=== PATIENT | male | born 1960 | race Native Hawaiian/Other Pacific Islander ===

== ENCOUNTER → 2016-10-02 | Outpatient (CLI) | payer OTHER ==
[~2016-10-02] MED LIST: DIGO250T PO; FURO20TA4 PO; PRAV40TA2 PO; WARF6TAB PO
== END ==
LOC: RAD 12:48
PROVIDERS: ATTEND Internal Medicine Cardiovascular Disease
DX: I73.9 Peripheral vascular disease, unspecified (principal); I48.2 Chronic atrial fibrillation; I50.33 Acute on chronic diastolic (congestive) heart failure; R06.09 Other forms of dyspnea; Z95.4 Presence of other heart-valve replacement
CPT/HCPCS: 93923

== ENCOUNTER → 2018-01-30 | Outpatient (CLI) | payer OTHER ==
[2018-01-30 16:46] LABS: BASOPHILS % (AUTO) 0 % (0-10); EOSINOPHILS # (AUTO) 0.1 10^3/uL (0.0-0.3); EOSINOPHILS % (AUTO) 1 % (0-10); HEMATOCRIT 41 % (40-54); HEMOGLOBIN 13.8 G/DL (13.3-17.7); LYMPHOCYTES # (AUTO) 0.8 X 10^3 (1.0-4.0); LYMPHOCYTES % (AUTO) 12 % (12-44); MEAN CORPUSCULAR HEMOGLOBIN 30 PG (25-34); MEAN CORPUSCULAR HGB CONC 33 G/DL (32-36); MEAN CORPUSCULAR VOLUME 88 FL (80-99); MEAN PLATELET VOLUME 9.8 FL (7.4-10.4); MONOCYTES # (AUTO) 0.7 X 10^3 (0.0-1.0); MONOCYTES % (AUTO) 10 % (0-12); NEUTROPHILS # (AUTO) 5.1 X 10^3 (1.8-7.8); NEUTROPHILS % (AUTO) 77 % (42-75); PLATELET COUNT 235 10^3/uL (130-400); RED BLOOD COUNT 4.68 10^6/uL (4.35-5.85); RED CELL DISTRIBUTION WIDTH 15.6 % (10.0-14.5); WHITE BLOOD COUNT 6.6 10^3/uL (4.3-11.0)
[2018-01-30 17:06] LABS: ALANINE AMINOTRANSFERASE 28 U/L (0-55); ALBUMIN 3.2 GM/DL (3.2-4.5); ALKALINE PHOSPHATASE 110 U/L (40-136); BUN/CREATININE RATIO 14; CALCIUM 8.5 MG/DL (8.5-10.1); CARBON DIOXIDE 33 MMOL/L (21-32); CHLORIDE 101 MMOL/L (98-107); CREATININE SERUM 0.94 MG/DL (0.60-1.30); GFR ESTIMATED > 60; GLUCOSE 92 MG/DL (70-105); MAGNESIUM 1.8 MG/DL (1.8-2.4); POTASSIUM 3.2 MMOL/L (3.6-5.0); SODIUM 140 MMOL/L (135-145); TOTAL PROTEIN 6.4 GM/DL (6.4-8.2)
[2018-01-30 17:33] LABS: DIGOXIN < 0.30 NG/ML (0.80-2.00)
== END ==
LOC: LAB 16:19
PROVIDERS: ATTEND Nurse Practitioner Family
DX: R06.09 Other forms of dyspnea (principal); I50.32 Chronic diastolic (congestive) heart failure; I48.2 Chronic atrial fibrillation; R60.9 Edema, unspecified
CPT/HCPCS: 36415; 80053; 80162; 83735; 83880; 84443; 85025

== ENCOUNTER → 2018-01-31 | Outpatient (CLI) | payer OTHER | LOC: CARD 09:41 | PROVIDERS: ATTEND Nurse Practitioner Family | DX: I50.32 Chronic diastolic (congestive) heart failure (principal); R06.09 Other forms of dyspnea; I48.2 Chronic atrial fibrillation; R60.9 Edema, unspecified; I08.1 Rheumatic disorders of both mitral and tricuspid valves | CPT/HCPCS: 93306 ==

== ENCOUNTER → 2018-02-03 | Outpatient (CLI) | payer OTHER ==
[2018-02-03 11:14] LABS: BUN/CREATININE RATIO 20; CALCIUM 9.8 MG/DL (8.5-10.1); CARBON DIOXIDE 27 MMOL/L (21-32); CHLORIDE 98 MMOL/L (98-107); CREATININE SERUM 0.87 MG/DL (0.60-1.30); GFR ESTIMATED > 60; GLUCOSE 97 MG/DL (70-105); MAGNESIUM 1.8 MG/DL (1.8-2.4); POTASSIUM 2.9 MMOL/L (3.6-5.0); SODIUM 139 MMOL/L (135-145)
== END ==
LOC: LAB 10:24
PROVIDERS: ATTEND Nurse Practitioner Family
DX: I50.43 Acute on chronic combined systolic (congestive) and diastolic (congestive) heart failure (principal)
CPT/HCPCS: 36415; 80048; 83735

== ENCOUNTER → 2018-02-05 | Outpatient (CLI) | payer OTHER ==
[2018-02-05 11:30] LABS: BUN/CREATININE RATIO 18; CALCIUM 9.3 MG/DL (8.5-10.1); CARBON DIOXIDE 34 MMOL/L (21-32); CHLORIDE 94 MMOL/L (98-107); CREATININE SERUM 0.94 MG/DL (0.60-1.30); GFR ESTIMATED > 60; GLUCOSE 111 MG/DL (70-105); MAGNESIUM 1.8 MG/DL (1.8-2.4); POTASSIUM 2.8 MMOL/L (3.6-5.0); SODIUM 138 MMOL/L (135-145)
[2018-02-05 11:38] LABS: DIGOXIN < 0.30 NG/ML (0.80-2.00)
== END ==
LOC: LAB 10:30
PROVIDERS: ATTEND Nurse Practitioner Family
DX: I50.43 Acute on chronic combined systolic (congestive) and diastolic (congestive) heart failure (principal); E87.6 Hypokalemia
CPT/HCPCS: 36415; 80048; 80162; 83735

== ENCOUNTER → 2020-04-04 | Outpatient (CLI) | payer OTHER ==
[~2020-04-04] MED LIST changes: -DIGO250T PO; +DIGO250T3 PO
== END ==
LOC: CARD 10:50
PROVIDERS: ATTEND Internal Medicine Cardiovascular Disease
DX: I08.1 Rheumatic disorders of both mitral and tricuspid valves (principal); I50.33 Acute on chronic diastolic (congestive) heart failure; I48.91 Unspecified atrial fibrillation; Z95.4 Presence of other heart-valve replacement
CPT/HCPCS: 93306

== ENCOUNTER 2020-05-22 14:59 | Emergency (ER) | payer OTHER ==
[~2020-05-22] VITALS: Ht 180.3 cm; Wt 72.4 kg
--- NOTE | 2020-05-22 15:20 | NUR ---
Right dorsalis pedis pulse obtained by doppler.
--- NOTE | 2020-05-22 15:22 | ED Lower Extremity ---
General Chief Complaint: Lower Extremity Stated Complaint: RT LEG PAIN Nursing Triage Note: Patient reports his right lower leg became painful and numb approximately one hour ago. States he has had a previous DVT and is taking coumadin. He states he had his INR tested on Saturday and it was low. Nursing Sepsis Screen: No Definite Risk Source: patient Exam Limitations: no limitations History of Present Illness Date Seen by Provider: May 22, 2020 Time Seen by Provider: 15:15 Initial Comments Patient is a 59-year-old male who presents to the emergency department today with a chief complaint of right lower extremity pain, numbness and "[id number]" that he believes is consistent with a blood clot. Patient has a long history of having blood clots in his legs. He is anticoagulated on Coumadin. He states that the pain was in his foot like a "cramp" and also in his upper thigh. Patient states that he was subtherapeutic on his Coumadin last week and therefore his dosing was increased from 5 mg to 6 mg daily. Patient tells me that in actuality his pain is improved at the time of my evaluation. He has not having any discomfort. 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 Ferrara. He denies any chest pain, shortness of breath, palpitations. No recent illnesses. All other review of systems reviewed and negative except as stated Onset: this afternoon Pain/Injury Location: right leg Allergies and Home Medications Allergies Coded Allergies: No Known Drug Allergies (Unverified , 01/13/15) Home Medications Digoxin 250 Mcg Tablet, 250 MCG PO HS, (Reported) Furosemide 20 Mg Tablet, 20 MG PO every other day Prescribed by: GRISELDA FERRARA on 03/22/15 1125 Pravastatin Sodium 40 Mg Tablet, 40 MG PO HS, (Reported) Warfarin Sodium 6 Mg Tablet, 9 MG PO ANGULO,SAT,SAT,SAT,SAT, (Reported) TAKES 1 AND 1/2 OF 6 MG TABS Warfarin Sodium 6 Mg Tablet, 6 MG PO SAT,, (Reported) Patient Home Medication List Home Medication List Reviewed: Yes Review of Systems Constitutional: no symptoms reported EENTM: no symptoms reported Respiratory: no symptoms reported Cardiovascular: No chest pain; edema Gastrointestinal: no symptoms reported Genitourinary: no symptoms reported Musculoskeletal: other (leg pain from the thigh to the foot) Skin: no symptoms reported All Other Systems Reviewed Negative Unless Noted: Yes Past Hqgwtxx-Uavlfw-Mwbbzm Hx Patient Social History Alcohol Use: Denies Use Recreational Drug Use: No Smoking Status: Never a Smoker 2nd Hand Smoke Exposure: No Recent Foreign Travel: No Contact w/Someone Who Travel: No Recent Infectious Disease Expo: No Recent Hopitalizations: No Physical Abuse: No Sexual Abuse: No Mistreated: No Fear: No Seasonal Allergies Seasonal Allergies: No Past Medical History Surgeries: Yes Valve Replacement Respiratory: No Cardiac: Yes Atrial Fibrillation, Chronic Edema/Swelling, Deep Vein Thrombosis, High Cholesterol Neurological: No Genitourinary: No Gastrointestinal: No Musculoskeletal: No Endocrine: No HEENT: No Cancer: No Psychosocial: No Integumentary: No Blood Disorders: No Physical Exam Vital Signs Vital Signs - First Documented 05/22/20 15:09 Temp 36.3 Pulse 76 Resp 18 B/P (MAP) 118/81 (93) Pulse Ox 99 O2 Delivery Room Air Capillary Refill : Less Than 3 Seconds Height, Weight, BMI Height: 5'10.00" Weight: 180lbs. oz. 81.251051uh; 22.00 BMI Method: General Appearance: WD/WN, no apparent distress Neck: full range of motion Cardiovascular: regular rate, rhythm, other (1+ pitting edema LLE; dopplerable dorsalis pedis pulse in the right foot) Respiratory: no respiratory distress, no accessory muscle use Hips: bilateral hip normal inspection, bilateral hip normal range of motion, bilateral hip no evidence of injury Legs: bilateral leg non-tender, bilateral leg normal inspection, bilateral leg normal range of motion, bilateral leg no evidence of injury Knees: bilateral knee normal range of motion, bilateral knee no evidence of injury Ankles: bilateral ankle non-tender, bilateral ankle normal inspection, bilateral ankle normal range of motion, bilateral ankle no evidence of injury Feet: bilateral foot non-tender, bilateral foot normal inspection, bilateral foot normal range of motion, bilateral foot no evidence of injury Neurologic/Tendon: normal motor functions, normal tendon functions Neurologic/Psychiatric: alert, normal mood/affect, oriented x 3 Skin: normal color, warm/dry Progress/Results/Core Measures Results/Orders Lab Results Laboratory Tests Test 05/22/20 15:30 Range/Units Prothrombin Time 15.9 H 12.2-14.7 SEC INR Comment 1.2 0.8-1.4 My Orders Orders - TAMERA,ROSALIE M MD Protime With Inr (05/22/20 15:16) Vital Signs/I&O 05/22/20 15:09 Temp 36.3 Pulse 76 Resp 18 B/P (MAP) 118/81 (93) Pulse Ox 99 O2 Delivery Room Air Blood Pressure Mean: 93 Progress Progress Note : Time: 15:25 Progress Note 59yo male with a history of DVT presents with complaints of RLE pain that he believes is consistent with a blood clot. Patient has no physical exam findings of a clot in the RLE, it is not swollen, it is non tender with no plapable cords, negative homans sign. However, he also said that he was sub therapeutic on his coumadin earlier in the week and we will check that to see if he is more therapeutic at this time. Ultrasound is not available at this facility and he has an appointment with his physician tomorrow. If necessary he can get the ultrasound through Dr Ferrara. He is already on treatment for DVT, it would just be a matter of increasing his dose of coumadin. Other DDx to consider is arterial occlusion in the leg - the lower leg is not cold, I can feel pulses in the foot and he has movement. If his pain is more consistent with movement he may have caludication and therefore need arterial duplex tomorrow. But he states the pain is inconsistent with activity. 1559 INR subtherapeutic, will have patient follow up with Dr Ferrara tomorrow, watch his diet; discuss possibility of changing anticoagulants Departure Impression Primary Impression: Right leg pain Additional Impression: Subtherapeutic anticoagulation Disposition: 01 HOME, SELF-CARE Condition: Stable Departure-Patient Inst. Decision time for Depature: 16:00 Referrals: SANJU CHANG DO (PCP) Primary Care Physician CARY BROWNING (Family) Primary Care Physician Patient Instructions: Deep Vein Thrombosis (Blood Clots in the Legs) (DC) Add. Discharge Instructions: I have written you an order for an ultrasound of your leg hopefully they can do this tomorrow. Please keep your appointment with Dr Ferrara tomorrow. Your INR today was 1.2. Watch your diet. Possibly discuss with Dr Ferrara switching blood thinning medications. ROSALIE PHILIP MD May 22, 2020 15:22
[2020-05-22 15:47] LABS: INR 1.2 (0.8-1.4); PROTHROMBIN TIME PATIENT 15.9 SEC (12.2-14.7)
[2020-05-22 16:12] VITALS: BP 115/64
== END 2020-05-22 16:09 | disposition home or self-care (01) ==
LOC: EDUNIT# 14:59 → ER FS 15:01
DX: M79.604 Pain in right leg (principal); E78.00 Pure hypercholesterolemia, unspecified; Z86.718 Personal history of other venous thrombosis and embolism; Z79.01 Long term (current) use of anticoagulants
CPT/HCPCS: 36415; 85610; 99283

== ENCOUNTER → 2020-05-23 | Outpatient (CLI) | payer OTHER ==
--- NOTE | 2020-05-23 11:24 | Diagnostic Imaging Report ---
PROCEDURE: US right lower extremity venous. TECHNIQUE: Multiple Real-time grayscale images were obtained over the right lower extremity in various projections. Additional spectral analysis and color Doppler duplex images were also obtained. INDICATION: Right leg pain. FINDINGS: There is no evidence of right lower extremity DVT. The right lower extremity deep venous system shows normal compressibility with normal response to augmentation and Valsalva. No fluid collection or mass is detected. IMPRESSION: No evidence of right lower extremity DVT. Dictated by: Dictated on workstation # [id number]
== END ==
LOC: RAD 11:00
PROVIDERS: ATTEND Emergency Medicine
DX: M79.661 Pain in right lower leg (principal); Z86.718 Personal history of other venous thrombosis and embolism; Z79.01 Long term (current) use of anticoagulants

== ENCOUNTER 2020-06-08 13:16 | Outpatient (RCR) | payer OTHER ==
[~2020-06-08] VITALS: Ht 177 cm; Wt 82.2 kg
[~2020-06-08 13:16] MED LIST changes: +ASPI-999 PO; +CHOL500044 PO; +DOCU100T7 PO; +FERR-84 PO; +METO5TAB6 PO; +SPIR25TA5 PO; +WARF6TAB49 PO
== END 2020-06-08 13:18 | disposition home or self-care (01) ==
LOC: PREOP 13:16
PROVIDERS: ATTEND Surgery
DX: Z01.812 Encounter for preprocedural laboratory examination (principal); K62.5 Hemorrhage of anus and rectum

== ENCOUNTER → 2020-06-10 | Outpatient (CLI) | payer OTHER | LOC: LAB FS 10:30 | PROVIDERS: ATTEND Surgery | DX: Z01.812 Encounter for preprocedural laboratory examination (principal); Z12.11 Encounter for screening for malignant neoplasm of colon; K62.5 Hemorrhage of anus and rectum; Z20.828 Contact with and (suspected) exposure to other viral communicable diseases | CPT/HCPCS: 87635 ==

== ENCOUNTER → 2020-06-14 | Day surgery (SDC) | payer OTHER ==
[~2020-06-14] VITALS: Ht 177.8 cm; Wt 85.0 kg
[2020-06-14] VITALS (8 sets, daily range): BP systolic 100–129; BP diastolic 57–74
[~2020-06-14] MED LIST changes: +LACTATED RINGERS 1,000 ML IV ONE; +LACTATED RINGERS 1,000 ML IV STA; +MIDAZOLAM 2 MG/2 ML (VERSED) VIAL ONE; +PROPOFOL INJECTION 50 ML IV ONE
[2020-06-14 10:15] LABS: INR 1.1 (0.8-1.4); PROTHROMBIN TIME PATIENT 14.8 SEC (12.2-14.7)
--- NOTE | 2020-06-14 12:15 | Progress Note-Post Operative ---
Post-Operative Progess Note Surgeon (s)/Cement Or Concrete Finishing Supervisor (s) Surgeon ROBI OLEARY DO Cement Or Concrete Finishing Supervisor: na Pre-Operative Diagnosis blood in stool Post-Operative Diagnosis hemorrhoids Procedure & Operative Findings Date of Procedure 06/14/20 Procedure Performed/Findings colonoscopy Anesthesia Type per bookmobile clerk Estimated Blood Loss Estimated blood loss (mL): none Specimens/Packing Specimens Removed na ROBI OLEARY DO Jun 14, 2020 12:15
--- NOTE | 2020-06-14 12:16 | Discharge Inst-Simple/Standard ---
Discharge Inst-Standard Patient Instructions/Follow Up Plan of Care/Instructions/FU: 2 weeks Yojana Activity as Tolerated: Yes Discharge Diet: Regular Diet ROBI OLEARY DO Jun 14, 2020 12:16
--- NOTE | 2020-06-14 19:00 | OPERATIVE REPORT ---
DATE OF SERVICE: 06/14/2020 PREOPERATIVE DIAGNOSIS: Blood in stool. POSTOPERATIVE DIAGNOSIS: Hemorrhoids. PROCEDURE: Colonoscopy. SURGEON: Robi Dial DO ANESTHESIA: Per SUPERVISOR ELEMENTARY EDUCATION. ESTIMATED BLOOD LOSS: None. COMPLICATIONS: None. INDICATIONS: The patient is a 59-year-old male with blood in stools. He understands risks and benefits of procedure and wished to proceed with procedure. Consent was signed in the chart. DESCRIPTION OF PROCEDURE: The patient was taken to the endoscopy suite, placed in left lateral recumbent position. Timeout was performed. Digital rectal exam was performed noting hemorrhoids. No palpable polyps, masses or ulcerations. Scope was inserted in the rectum and advanced all the way to cecum with minimal difficulty. Prep was adequate. No polyps, masses or ulcerations in the cecum. The ileocecal valve was intubated and normal appearance. Scope was then retracted back into the colon and continued to be retracted. No polyps, masses or ulcerations within the ascending, transverse, descending and sigmoid colon. Once in the rectum, scope was retroflexed just noting some hemorrhoidal disease. Scope was returned to its normal position, slowly withdrawn until completely removed. The patient tolerated procedure well without any complications and taken to recovery room in stable condition. RECOMMENDATIONS: The patient will continue to monitor. If continues to have bleeding, would consider repeat endoscopy. No source of bleeding. Suspect hemorrhoidal bleeding. The patient will follow up to discuss in office. Job ID: [id number] DocumentID: [id number] Dictated Date: 06/14/2020 12:18:21 Business Banker Date: 06/14/2020 18:59:31 Dictated By: ROBI DIAL DO
== END ==
LOC: ENDO 08:50
PROVIDERS: ATTEND Surgery
DX: K92.1 Melena (principal); K64.9 Unspecified hemorrhoids; I48.91 Unspecified atrial fibrillation; D64.9 Anemia, unspecified; I50.33 Acute on chronic diastolic (congestive) heart failure; E66.9 Obesity, unspecified; Z68.26 Body mass index [BMI] 26.0-26.9, adult; Z79.899 Other long term (current) drug therapy; Z79.01 Long term (current) use of anticoagulants; Z79.82 Long term (current) use of aspirin
CPT/HCPCS: 36415; 85610

== ENCOUNTER → 2020-10-10 | Outpatient (CLI) | payer OTHER ==
[~2020-10-10] MED LIST changes: -LACTATED RINGERS 1,000 ML IV ONE; -LACTATED RINGERS 1,000 ML IV STA; -MIDAZOLAM 2 MG/2 ML (VERSED) VIAL ONE; -PROPOFOL INJECTION 50 ML IV ONE
== END ==
LOC: CARD 09:46
PROVIDERS: ATTEND Internal Medicine Cardiovascular Disease
DX: I08.0 Rheumatic disorders of both mitral and aortic valves (principal); Z95.2 Presence of prosthetic heart valve
CPT/HCPCS: 93306

== ENCOUNTER → 2022-02-15 | Outpatient (CLI) | payer SELFPAY | END | disposition home or self-care (01) | LOC: PREOP 05:32 | PROVIDERS: ATTEND Surgery | DX: Z01.818 Encounter for other preprocedural examination (principal) ==

== ENCOUNTER 2022-03-22 05:30 | Outpatient (CLI) | payer SELFPAY ==
[~2022-03-22] VITALS: Ht 177.8 cm; Wt 78.5 kg
== END 2022-03-22 13:24 | disposition home or self-care (01) ==
LOC: PREOP 05:30
PROVIDERS: ATTEND Surgery
DX: Z01.818 Encounter for other preprocedural examination (principal)

== ENCOUNTER 2022-03-29 10:14 | Day surgery (SDC) | payer OTHER ==
[2022-03-29] VITALS (12 sets, daily range): BP systolic 93–125; BP diastolic 54–83
[~2022-03-29] VITALS: Ht 177 cm; Wt 78.5 kg
[2022-03-29] MEDS ORDERED: LACTATED RINGERS 1,000 ML IV PRN (10:30)
[2022-03-29] MEDS ORDERED: proPOfol 200 MG/20 ML (DIPRIVAN) VIAL IV ONE (11:37)
[2022-03-29] MEDS ORDERED: ONDANSETRON 4 MG/2 ML (SDV) Z0FRAN ONE (11:37)
[2022-03-29] MEDS ORDERED: fentaNYL INJ 100 MCG/2 ML AMP ONE (11:37)
[2022-03-29] MEDS ORDERED: MIDAZOLAM 2 MG/2 ML (VERSED) VIAL ONE (11:37)
[2022-03-29] MEDS ORDERED: LIDOCAINE PF 2% 5 ML (XYLOCAINE) VIAL ONE (11:37)
[2022-03-29] MEDS ORDERED: MTP25TSR PO (11:42)
[2022-03-29] MEDS ORDERED: ceFAZolin INJECTION 2,000 MG ONE (11:50)
[2022-03-29] MEDS ORDERED: LIDOCAINE/EPI 2% 1:200,00 (XYLOCAINE) 20 ML VIAL ONE (12:15)
[2022-03-29] MEDS ORDERED: SEVOFLURANE (ULTANE) 15 ML INHAL SOLN ONE (12:55)
--- NOTE | 2022-03-29 13:03 | Discharge Inst-Simple/Standard ---
Discharge Inst-Standard Discharge Medications New, Converted or Re-Newed RX: Transmitted to Pharmacy Patient Instructions/Follow Up Plan of Care/Instructions/FU: 2 weeks Yojana Activity as Tolerated: No Discharge Diet: Regular Diet Other Inst to Patient Follow up Appt: Make appointment for 2 week. Instructions: No lifting greater than 10 pounds. No strenuous activity. Sitz baths twice a day and after bowel movements. Use incentive spirometer at home as directed. No Smoking Skin/Wound Care: You have a plug in the anus/rectum. If it doesn't come out in 24 hours gently remove it. Do not pull on the strings, they are stitches and stay there. Symptoms to Report: Appetite Changes, Extremity Discoloration, Numbness/Tingling, Swelling Increased, Bleeding Excessive, Eyesight Changes, Pain Increased, Urine Color Change, Constipation(Persistent), Fever over 101 degree F, Pain/Pressure in chest, Urinating Difficulty, Cough Up/Vomit Blood, Heart Beat Irreg/Pounding, Pain/Pressure in jaw, Vaginal Bleeding Increase, Cramps in feet or legs, Lightheadedness, Pain/Pressure in shoulder, Diarrhea(Persistent), Memory Changes Suddenly, Questions/Concerns, Weight gain consecutive days, Dizziness/Fainting, Nausea/Vomiting, Shortness of Breath, Weight gain over 2 pounds If questions or concerns contact your physician Or seek help at emergency department. ROBI OLEARY DO Mar 29, 2022 13:03
[2022-03-29] MEDS ORDERED: ACHD5005 PO (13:04)
[2022-03-29] MEDS ORDERED: ONDANSETRON 4 MG/2 ML (SDV) Z0FRAN IVP PRN (13:15)
[2022-03-29] MEDS ORDERED: morphine INJ 10 MG/ML 1ML (SYR OR VIAL) IVP ONE (13:15)
[2022-03-29] MEDS ORDERED: HYDROmorphone 2 MG/ML VIAL (DILAUDID) IV ONE (13:15)
--- NOTE | 2022-03-29 14:14 | Anesthesia-General Post-Op ---
General Patient Condition Mental Status/LOC: Same as Preop Cardiovascular: Satisfactory Nausea/Vomiting: Absent Respiratory: Satisfactory Pain: Controlled Complications: Absent Post Op Complications Complications None Follow Up Care/Instructions Patient Instructions None needed. Anesthesia/Patient Condition Patient Condition Patient was doing well in PACU with no complaints, stable vital signs, no apparent adverse anesthesia problems. No complications reported per nursing. ELEAZAR PELLETIER DO Mar 29, 2022 14:14
--- NOTE | 2022-03-29 20:02 | OPERATIVE REPORT ---
DATE OF SERVICE: 03/29/2022 PREOPERATIVE DIAGNOSES: Blood in stool. Hemorrhoids. POSTOPERATIVE DIAGNOSIS: Internal and external hemorrhoids. PROCEDURE: Colonoscopy with exam under anesthesia, left lateral internal hemorrhoidectomy. SURGEON: Robi Dial DO ANESTHESIA: General. ESTIMATED BLOOD LOSS: Minimal. COMPLICATIONS: None. INDICATIONS: The patient is a 61-year-old male with blood in the stools. He also has hemorrhoids. He understands risks and benefits of procedure and wishes to proceed. Consent was signed in the chart. DESCRIPTION OF PROCEDURE: The patient was taken to the operating suite, placed in frogleg position. Timeout was performed. Digital rectal exam was performed noting external and internal hemorrhoids. Scope was inserted in the rectum and advanced all the way to the cecum with minimal difficulty. Prep was adequate. Scope was slowly retracted back. No polyps, masses or ulcerations in the cecum, ascending, transverse, descending, sigmoid colon. Once in the rectum, scope was retroflexed noting hemorrhoids. Scope was slowly retracted back until completely removed. The patient tolerated the procedure well. The patient was then placed in lithotomy position. Exam under anesthesia performed again noting external and internal hemorrhoids, left lateral hemorrhoid complex significantly large, also large external components as well. Dittmar retractor was inserted, visualizing the left one to be significantly larger and inflamed. This was able to be grasped and gently retracted. A Harmonic Focus then was used to excise the area of the left lateral hemorrhoid. Some slight oozing present due to the patient's anticoagulation. This was controlled and 2-0 Vicryl suture was then used to close the mucosal defect little bit of oozing present, so a second 2-0 Vicryl was ran closing the defect. Prior to hemorrhoidectomy, a bilateral pudendal block was performed. Hemostasis was achieved. A Gelfoam and Vaseline gauze was inserted into the anorectal area to continue with hemostasis. The patient tolerated the procedure well without any complications, taken to recovery room in stable condition. RECOMMENDATIONS: We will see how he is doing at this time and followup. If continues to have bleeding, we would consider excising the right anterior or posterior hemorrhoid complex. This was not done today due to concern for multiple areas of hematomas causing further difficulties, therefore, we only did the one area, which was the worst. Job ID: [id number] DocumentID: [id number] Dictated Date: 03/29/2022 13:09:06 Manager Loan Date: 03/29/2022 20:02:13 Dictated By: ROBI DIAL DO
== END 2022-03-29 15:02 | disposition home or self-care (01) ==
LOC: SDC 10:14
PROVIDERS: ATTEND Surgery
DX: K64.8 Other hemorrhoids (principal); K64.4 Residual hemorrhoidal skin tags; K92.1 Melena; E66.9 Obesity, unspecified; Z68.25 Body mass index [BMI] 25.0-25.9, adult
CPT/HCPCS: 87081

== ENCOUNTER → 2022-04-20 | Outpatient (CLI) | payer MEDICAID ==
[~2022-04-20] MED LIST changes: +ACHD5005 PO; +MTP25TSR PO
== END ==
LOC: CARD 10:20
PROVIDERS: ATTEND Internal Medicine Cardiovascular Disease
DX: I36.1 Nonrheumatic tricuspid (valve) insufficiency (principal); I50.33 Acute on chronic diastolic (congestive) heart failure; I51.7 Cardiomegaly; Z95.2 Presence of prosthetic heart valve
CPT/HCPCS: 93306

== ENCOUNTER 2022-12-04 16:57 | Emergency (ER) | payer MEDICAID, OTHER ==
--- NOTE | 2022-12-04 17:13 | ED General ---
General Chief Complaint: Head/Cervical Problems Stated Complaint: HEADACHES Source of Information: Patient, Caregiver History of Present Illness Date Seen by Provider: December 04, 2022 Time Seen by Provider: 16:59 Initial Comments 62-year-old male presenting with caregivers. He has reportedly been having a left-sided headache above his eye for the last week. He has had decreased concentration and is more forgetful. He has had increased swelling to his legs especially the left side which had been swollen after his stroke 2 years ago. He takes Lasix to try and help with the edema. He follows with Dr. Ferrara for cardiology and was seen Dr. Jesus before he retired. Now he is seeing a nurse practitioner at [facility]. They went to the clinic today after he has had all of this going on for a week. Today he felt he might have a fever and took some tylenol. He had some nausea today as well. He denies having abdominal pain, chest pain, pain with urination, diarrhea. Timing/Duration: 1 Week Severity: Severe Associated Systoms: No Chest Pain, No Cough, No Diaphoresis; Fever/Chills (subjective this am), Headaches (left sided above eye), Loss of Appetite, Malaise, Nausea/Vomiting (nausea today but no emesis); No Seizure, No Shortness of Air, No Syncope; Weakness Allergies and Home Medications Allergies Coded Allergies: No Known Drug Allergies (Unverified , 06/08/20) Patient Home Medication List Home Medication List Reviewed: Yes Aspirin (Aspirin) 81 Mg Tab.chew, 81 MG PO DAILY, (Reported) Entered as Reported by: YARA PABLO on 06/08/20 1305 Cholecalciferol (Vitamin D3) (Vitamin D3) 125 Mcg Tablet, 125 MCG PO DAILY, (Reported) Entered as Reported by: YARA PABLO on 06/08/20 1305 Digoxin (Digoxin) 250 Mcg Tablet, 250 MCG PO HS, (Reported) Entered as Reported by: ELAINE DUNCAN on 03/22/15 0848 Docusate Sodium (Stool Softener) 100 Mg Tablet, 100 MG PO DAILY, (Reported) Entered as Reported by: YARA PABLO on 06/08/20 1306 Ferrous Sulfate (Iron) 325 Mg Tablet, 325 MG PO DAILY, (Reported) Entered as Reported by: YARA PABLO on 06/08/20 1305 Furosemide (Furosemide) 20 Mg Tablet, 20 MG PO DAILY, (Reported) Entered as Reported by: YARA PABLO on 06/08/20 1305 Hydrocodone/Acetaminophen (Hydrocodone-Acetamin 5-325 mg) 5 Mg-325 Mg Tablet, 1 EACH PO Q4H PRN for PAIN-MODERATE (5-7) Prescribed by: ROBI OLEARY on 03/29/22 1304 Magnesium Glycinate, Mag Oxide (Magnesium Glycinate) 120 Mg Magnesium Capsule, 120 MG PO DAILY Prescribed by: KIESHA RICHARD on 12/04/222007 Metolazone (Metolazone) 5 Mg Tablet, 5 MG PO BID, (Reported) Entered as Reported by: YARA PABLO on 06/08/20 130 Metoprolol Succinate (Metoprolol Succinate) 25 Mg Tab.er.24h, 25 MG PO DAILY, (Reported) Entered as Reported by: JERI SOLER on 03/29/22 1142 Spironolactone (Spironolactone) 25 Mg Tablet, 25 MG PO BID, (Reported) Entered as Reported by: YARA PABLO on 06/08/20 1305 Warfarin Sodium (Warfarin Sodium) 6 Mg Tablet, 6 MG PO DAILY, (Reported) Entered as Reported by: YARA PABLO on 06/08/20 1305 Review of Systems Review of Systems Constitutional: see HPI EENTM: No ear discharge, No ear pain, No vision loss, No epistaxis, No nose congestion Respiratory: No cough, No short of breath Cardiovascular: No chest pain; edema Gastrointestinal: No abdominal pain; nausea; No vomiting Genitourinary: No dysuria Musculoskeletal: no symptoms reported Skin: no symptoms reported Psychiatric/Neurological: Headache (left sided above her eye); Denies Numbness, Denies Paresthesia; Weakness (general) Hematologic/Lymphatic: No Symptoms Reported Past Hlzdggf-Xugjst-Mwbocx Hx Patient Social History Tobacco Use?: No Immunizations Up To Date First/Initial COVID19 Vaccinat: 2020 Second COVID19 Vaccination [place]: 2020 Third COVID19 Vaccination Date: 2020 Seasonal Allergies Seasonal Allergies: No Past Medical History Surgery/Hospitalization HX: Stroke 2020, CHF, Atrial fibrillation, Hypertension Surgeries: Yes Valve Replacement Respiratory: No Currently Using CPAP: No Currently Using BIPAP: No Cardiac: Yes Atrial Fibrillation, Chronic Edema/Swelling, Deep Vein Thrombosis, Hypertension Neurological: Yes Stroke Sexually Transmitted Disease: No HIV/AIDS: No Genitourinary: No Gastrointestinal: Yes Chronic Constipation Musculoskeletal: No Endocrine: No HEENT: No Loss of Vision: Denies Hearing Impairment: Hard of Hearing Cancer: No Psychosocial: No Integumentary: No Blood Disorders: Yes (ANEMIA) Adverse Reaction/Blood Tranf: No (N/A) Physical Exam Vital Signs Vital Signs - First Documented 12/04/22 17:00 Temp 36.5 Pulse 57 Resp 16 B/P (MAP) 108/47 (67) Pulse Ox 97 O2 Delivery Room Air Capillary Refill : Height, Weight, BMI Height: 5'10.00" Weight: 180lbs. oz. 81.351559am; 25.05 BMI Method: General Appearance: No Apparent Distress, WD/WN HEENT: PERRL/EOMI, Pharynx Normal, Moist Mucous Membranes Neck: Full Range of Motion, Normal Inspection, Non Tender, Supple Respiratory: Chest Non Tender, Lungs Clear, Normal Breath Sounds Cardiovascular: Regular Rate, Rhythm, Normal Peripheral Pulses Gastrointestinal: Normal Bowel Sounds, No Pulsatile Mass, Non Tender, Soft Rectal: Deferred Extremity: Normal Capillary Refill, Normal Inspection, Pedal Edema (2 + pitting edema LLE and 1+ pitting edema RLE both extend up above his knee) Neurologic/Psychiatric: Alert, Oriented x3, parking enforcement specialist II-XII Norm as Tested Skin: Normal Color, Warm/Dry Progress/Results/Core Measures Suspected Sepsis SIRS Temperature: Pulse: Respiratory Rate: Laboratory Tests 12/04/22 17:25: White Blood Count 7.7 Blood Pressure / Mean: Laboratory Tests 12/04/22 17:25: Creatinine 1.16, Platelet Count 259, Total Bilirubin 0.5 Results/Orders Lab Results Laboratory Tests Test 12/04/22 17:25 12/04/22 18:17 Range/Units White Blood Count 7.7 4.3-11.0 10^3/uL Red Blood Count 4.62 4.30-5.52 10^6/uL Hemoglobin 13.3 13.3-17.7 g/dL Hematocrit 40 40-54 % Mean Corpuscular Volume 87 80-99 fL Mean Corpuscular Hemoglobin 29 25-34 pg Mean Corpuscular Hemoglobin Concent 33 32-36 g/dL Red Cell Distribution Width 14.7 H 10.0-14.5 % Platelet Count 259 130-400 10^3/uL Mean Platelet Volume 9.6 9.0-12.2 fL Immature Granulocyte % (Auto) 0 % Neutrophils (%) (Auto) 82 H 42-75 % Lymphocytes (%) (Auto) 8 L 12-44 % Monocytes (%) (Auto) 9 0-12 % Eosinophils (%) (Auto) 0 0-10 % Basophils (%) (Auto) 1 0-10 % Neutrophils # (Auto) 6.3 1.8-7.8 10^3/uL Lymphocytes # (Auto) 0.6 L 1.0-4.0 10^3/uL Monocytes # (Auto) 0.7 0.0-1.0 10^3/uL Eosinophils # (Auto) 0.0 0.0-0.3 10^3/uL Basophils # (Auto) 0.0 0.0-0.1 10^3/uL Immature Granulocyte # (Auto) 0.0 0.0-0.1 10^3/uL Neutrophils % (Manual) 81 % Lymphocytes % (Manual) 3 % Monocytes % (Manual) 8 % Eosinophils % (Manual) 1 % Atypical Lymphocytes % Reactive Lymphocytes 7 % Toxic Granulation 1+ Platelet Estimate NORMAL Poikilocytosis MARKED Crenated Cell MARKED Elliptocytes SLIGHT Schistocytes SLIGHT Blood Morphology Comment ABNORMAL Sodium Level 133 L 135-145 MMOL/L Potassium Level 3.0 L 3.6-5.0 MMOL/L Chloride Level 96 L 98-107 MMOL/L Carbon Dioxide Level 27 21-32 MMOL/L Anion Gap 10 5-14 MMOL/L Blood Urea Nitrogen 24 H 7-18 MG/DL Creatinine 1.16 0.60-1.30 MG/DL Estimat Glomerular Filtration Rate 72 BUN/Creatinine Ratio 21 Glucose Level 117 H 70-105 MG/DL Calcium Level 7.9 L 8.5-10.1 MG/DL Corrected Calcium 9.1 8.5-10.1 MG/DL Magnesium Level 1.4 L 1.6-2.4 MG/DL Total Bilirubin 0.5 0.1-1.0 MG/DL Aspartate Amino Transf (AST/SGOT) 38 H 5-34 U/L Alanine Aminotransferase (ALT/SGPT) 21 0-55 U/L Alkaline Phosphatase 61 40-136 U/L Troponin I < 0.30 <0.30 NG/ML Pro-B-Type Natriuretic Peptide 411.6 H <125.0 PG/ML Total Protein 4.9 L 6.4-8.2 GM/DL Albumin 2.5 L 3.2-4.5 GM/DL Lipase 75 8-78 U/L Serum Alcohol < 10 <10 MG/DL Urine Color YELLOW Urine Clarity CLEAR Urine pH 7.0 5-9 Urine Specific [place] 1.010 L 1.016-1.022 Urine Protein NEGATIVE NEGATIVE Urine Glucose (UA) NEGATIVE NEGATIVE Urine Ketones NEGATIVE NEGATIVE Urine Nitrite NEGATIVE NEGATIVE Urine Bilirubin NEGATIVE NEGATIVE Urine Urobilinogen 0.2 < = 1.0 MG/DL Urine Leukocyte Esterase NEGATIVE NEGATIVE Urine RBC (Auto) NEGATIVE NEGATIVE Urine RBC NONE /HPF Urine WBC RARE /HPF Urine Squamous Epithelial Cells RARE /HPF Urine Crystals NONE /LPF Urine Bacteria NEGATIVE /HPF Urine Casts PRESENT /LPF Urine Hyaline Casts 2-5 H /LPF Urine Mucus NEGATIVE /LPF Urine Culture Indicated NO Urine Opiates Screen NEGATIVE NEGATIVE Urine Oxycodone Screen NEGATIVE NEGATIVE Urine Methadone Screen NEGATIVE NEGATIVE Urine Propoxyphene Screen NEGATIVE NEGATIVE Urine Barbiturates Screen NEGATIVE NEGATIVE Ur Tricyclic Antidepressants Screen NEGATIVE NEGATIVE Urine Phencyclidine Screen NEGATIVE NEGATIVE Urine Amphetamines Screen NEGATIVE NEGATIVE Urine Methamphetamines Screen NEGATIVE NEGATIVE Urine Benzodiazepines Screen NEGATIVE NEGATIVE Urine Cocaine Screen NEGATIVE NEGATIVE Urine Cannabinoids Screen NEGATIVE NEGATIVE My Orders Orders - KIESHA RICHARD MD Cbc With Automated Diff (12/04/22 17:09) Magnesium (12/04/22 17:09) Chest 1 View Ap/Pa Only (12/04/22 17:09) Ekg Tracing (12/04/22 17:09) Comprehensive Metabolic Panel (12/04/22 17:09) Protime With Inr (12/04/22 17:09) Partial Thromboplastin Time (12/04/22 17:09) O2 (12/04/22 17:09) Monitor-Rhythm Ecg Trace Only (12/04/22 17:09) Ed Iv/Invasive Line Start (12/04/22 17:09) Lipase (12/04/22 17:09) Troponin I Fs (12/04/22 17:09) Probnp Fs (12/04/22 17:09) Ua Culture If Indicated (12/04/22 17:09) Drug Screen Stat (Urine) (12/04/22 17:09) Alcohol (12/04/22 17:09) Ct Head Wo (12/04/22 17:09) Manual Differential (12/04/22 17:25) Magnesium 1 Gm/100 Ml Ivpb (Magnesium Mast (12/04/22 19:30) Furosemide Injection (Lasix Injection) (12/04/22 19:30) Potassium Chloride (Tablet) (K Dur Table (12/04/22 19:31) Vital Signs/I&O 12/04/22 17:00 Temp 36.5 Pulse 57 Resp 16 B/P (MAP) 108/47 (67) Pulse Ox 97 O2 Delivery Room Air Capillary Refill : Progress Note #1: Progress Note Potential diagnosis of migraine headache, electrolyte imbalance, exacerbation of CHF, UTI, acute stroke, brain mass, hydrocephalus. Obtain peripheral IV access and send labs for complete blood count, comprehensive metabolic profile, coagulation factors, Progress Note #2: Progress Note Blood count shows WBC normal at 7.7 and Hemoglobin is at lower limit of normal at 13.3. He has low potassium to 3.0 and Magnesium of 1.4. This could be contributing to frequent PVCs. He had no elevation of his troponin as it was <0.3. His Creatinine was slightly elevated to 1.16. His proBNP was slightly elevated to 411.6. He had a normal lipase of 75. His alcohol level was less than 10. His urine drug screen was negative for all substances. His urinalysis had a normal specific gravity of 1.010. He had no nitrites, leukocyte esterase, white blood cells, bacteria and indicate an infection. On his 1 view chest x-ray he had prominent cardiomegaly and some pulmonary edema. I did not appreciate a large effusion or definite infiltrate. On his CT scan of the head without contrast I did not appreciate any acute mass, hydrocephalus, stroke, bleeding. Progress Note #3: Progress Note I reviewed the radiologist report on the 1 view chest x-ray and CT scan of the head without contrast. They also did not appreciate any acute process in the CT head. On his chest x-ray they read it as cardiomegaly with pulmonary edema and patchy infiltrates that could be related to edema or possibly atypical infection. I reviewed the findings with patient and family. He states that he is taking 3 different diuretics of Lasix, metolazone, spironolactone. He could not tell me the doses of those 3 diuretics. None of these medicines for diuretics were listed on his medication list that family had. It did look like there was may be an additional list of medicine on another page that they did not receive. Advised that I did not see anything specific to make him have to be admitted to the hospital currently. He could be experiencing some residual advancing effects from has prior stroke with decline in mentation as well as possible migraine or atypical migraine headaches related to prior brain injury with the stroke. We will give an IV dose of magnesium 1 g to help supplement his hypomagnesemia level of 1.4. Given an additional 40 mEq p.o. of potassium. Given an additional dose of Lasix 40 mg IV x1 here in the ED to try and help with diuresis. Prescribed magnesium to take at home. Encouraged to check back with the clinic tomorrow to find out about his diuretics and see how they might want to adjust to help with his increased fluid. He might also need to go see Dr. Ferrara from a cardiology standpoint advised if he had worsening symptoms to return or seek medical care for further evaluation. He might need admitted to [place] or [place] to give diuresis and monitoring. ECG Initial ECG Impression Date: December 04, 2022 Initial ECG Impression Time: 17:22 Initial ECG Rate: 62 Initial ECG Rhythm: Normal Sinus Initial ECG Impression: 1st Degree AV Block Initial ECG Comparisson: No Previous ECG Available Comment On my personal interpretation and review his electrocardiogram shows a sinus rhythm with first-degree AV block and frequent PVCs. His heart rate 62 bpm. NM interval [address] elevation. He has an incomplete right bundle branch block. QT interval 460 ms with a QTc interval 465 ms. He has some baseline wander on the tracing. There is no prior tracing available for comparison. Diagnostic Imaging Diagonstic Imaging: CT Plain Films/CT/US/NM/MRI: head Comments [facility], [place] NAME: ISIDRO GUTIÉRREZ [facility] REC#: [id number] PT STATUS: REG ER : 1960 PHYSICIAN: KIESHA RICHARD MD ADMIT DATE: 12/04/22/ER FS Signed Date of Exam:12/04/22 CT HEAD WO PROCEDURE: CT head without contrast. TECHNIQUE: Multiple contiguous axial images were obtained through the brain without the use of intravenous contrast. Auto Exposure Controls were utilized during the CT exam to meet ALARA standards for radiation dose reduction. INDICATION: Left-sided headache. No prior studies are available for comparison. FINDINGS: Ventricular sizes and sulcal pattern are within normal limits. There is no sulcal effacement or midline shift. There appears to be an old infarct in the right basal ganglia and right raymundo radiata. There is no midline shift. No acute intra-axial or extra-axial hemorrhage is detected. Cisterns are patent. The visualized paranasal sinuses are clear. IMPRESSION: Chronic changes. No acute intracranial process is detected. Dictated by: Dictated on workstation # [id number] Dict: 12/04/221832 Trans: 12/04/221843 [id number] Interpreted by: TOO KOWALSKI MD Electronically signed by: TOO KOWALSKI MD 12/04/221843 Reviewed: Reviewed by Nv Diagonstic Imaging: Xray Plain Films/CT/US/NM/MRI: chest Comments [facility], [place] NAME: ISIDRO GUTIÉRREZ [facility] REC#: [id number] PT STATUS: REG ER : 1960 PHYSICIAN: KIESHA RICHARD MD ADMIT DATE: 12/04/22/ER FS Signed Date of Exam:12/04/22 CHEST 1 VIEW AP/PA ONLY EXAMINATION: Chest 1 view HISTORY: short of breath COMPARISON: None available. FINDINGS: Heart size is enlarged. Surgical changes from median sternotomy and valve repair. There are mild interstitial opacities throughout the lungs. No pneumothorax. The osseous structures are intact. Prominent retrocardiac opacity which may be secondary to cardiomegaly but a hiatal hernia could have a similar appearance. IMPRESSION: 1. Cardiomegaly with interstitial opacities throughout both lungs. Findings could be seen with pulmonary edema/heart failure or atypical pneumonia. Dictated by: Dictated on workstation # [id number] Dict: 12/04/221831 Trans: 12/04/221924 [facility] [id number] Interpreted by: MAURILIO PINEDA DO Electronically signed by: MAURILIO PINEDA DO 12/04/22 1925 Reviewed: Reviewed by Me Departure Impression Primary Impression: Acute exacerbation of CHF (congestive heart failure) Qualified Codes: I50.9 - Heart failure, unspecified Additional Impressions: Hypokalemia Hypomagnesemia Left-sided headache Weakness Difficulty concentrating Disposition: 01 HOME, SELF-CARE Condition: Stable Departure-Patient Inst. Decision time for Depature: 20:04 Referrals: GRISELDA FERRARA MD FACP FACC [facility] [place] Patient Instructions: Heart Failure ED, Fatigue ED, Weakness ED, Headache, Adult ED, Low Magnesium Level (DC), Hypokalemia (DC) Add. Discharge Instructions: Your CT scan of the head did not show signs of new stroke, bleeding or mass. Your blood work and chest xray show that you have an exacerbation of your heart failure and some extra fluid on your lungs and legs. Your Potassium and Magnesium are both low. Your potassium is 3 and the Magnesium is 1.4. You were given 1 gram of Magnesium by your IV and an additional 40 mEq of Potassium here in the ED. Check with clinic tomorrow to see how they want you to take your diuretic (Water pills). You may need to also check with Dr. Ferrara. If you have worsening symptoms, especially shortness of breath worsening, or chest pains then return or seek medical care as you may need to be admitted to [place] so they can help get the extra fluid off your body and have you see Dr. Ferrara. All discharge instructions reviewed with patient and/or family. Voiced understanding. Scripts Magnesium Glycinate, Mag Oxide (Magnesium Glycinate) 120 Mg Magnesium Capsule 120 MG PO DAILY for Low Magnesium for 30 Days, #30 CAP 0 Refills Prov: KIESHA RICHARD MD 12/04/22 KIESHA RICHARD MD December 04, 2022 17:13
[2022-12-04 18:09] LABS: BASOPHILS % (AUTO) 1 % (0-10); EOSINOPHILS % (AUTO) 0 % (0-10); HEMATOCRIT 40 % (40-54); HEMOGLOBIN 13.3 g/dL (13.3-17.7); LYMPHOCYTES # (AUTO) 0.6 10^3/uL (1.0-4.0); LYMPHOCYTES % (AUTO) 8 % (12-44); MEAN CORPUSCULAR HEMOGLOBIN 29 pg (25-34); MEAN CORPUSCULAR HGB CONC 33 g/dL (32-36); MEAN CORPUSCULAR VOLUME 87 fL (80-99); MEAN PLATELET VOLUME 9.6 fL (9.0-12.2); MONOCYTES # (AUTO) 0.7 10^3/uL (0.0-1.0); MONOCYTES % (AUTO) 9 % (0-12); NEUTROPHILS # (AUTO) 6.3 10^3/uL (1.8-7.8); NEUTROPHILS % (AUTO) 82 % (42-75); PLATELET COUNT 259 10^3/uL (130-400); WHITE BLOOD COUNT 7.7 10^3/uL (4.3-11.0)
[2022-12-04 18:29] LABS: BILIRUBIN,URINE NEGATIVE (NEGATIVE); CLARITY,URINE CLEAR; COLOR,URINE YELLOW; GLUCOSE, URINE (UA) NEGATIVE (NEGATIVE); KETONES,URINE NEGATIVE (NEGATIVE); LEUKOCYTE ESTERASE ,URINE NEGATIVE (NEGATIVE); NITRITE,URINE NEGATIVE (NEGATIVE); PROTEIN,URINE NEGATIVE (NEGATIVE)
--- NOTE | 2022-12-04 18:37 | Diagnostic Imaging Report ---
EXAMINATION: Chest 1 view HISTORY: short of breath COMPARISON: None available. FINDINGS: Heart size is enlarged. Surgical changes from median sternotomy and valve repair. There are mild interstitial opacities throughout the lungs. No pneumothorax. The osseous structures are intact. Prominent retrocardiac opacity which may be secondary to cardiomegaly but a hiatal hernia could have a similar appearance. IMPRESSION: 1. Cardiomegaly with interstitial opacities throughout both lungs. Findings could be seen with pulmonary edema/heart failure or atypical pneumonia. Dictated by: Dictated on workstation # [id number]
--- NOTE | 2022-12-04 18:38 | Diagnostic Imaging Report ---
PROCEDURE: CT head without contrast. TECHNIQUE: Multiple contiguous axial images were obtained through the brain without the use of intravenous contrast. Auto Exposure Controls were utilized during the CT exam to meet ALARA standards for radiation dose reduction. INDICATION: Left-sided headache. No prior studies are available for comparison. FINDINGS: Ventricular sizes and sulcal pattern are within normal limits. There is no sulcal effacement or midline shift. There appears to be an old infarct in the right basal ganglia and right raymundo radiata. There is no midline shift. No acute intra-axial or extra-axial hemorrhage is detected. Cisterns are patent. The visualized paranasal sinuses are clear. IMPRESSION: Chronic changes. No acute intracranial process is detected. Dictated by: Dictated on workstation # [id number]
[2022-12-04 18:42] LABS: WBC,URINE RARE /HPF
[2022-12-04 18:43] LABS: BACTERIA,URINE NEGATIVE /HPF; SQUAMOUS EPITHELIAL CELL,UR RARE /HPF
[2022-12-04 18:44] LABS: NEUTROPHILS % (MANUAL) 81 %
[2022-12-04 18:45] LABS: EOSINOPHILS % (MANUAL) 1 %; LYMPHOCYTES % (MANUAL) 3 %; MONOCYTES % (MANUAL) 8 %; PLATELET ESTIMATE NORMAL; POIKILOCYTOSIS MARKED; RBC MORPH ABNORMAL; REACTIVE LYMPHOCYTES 7 %
[2022-12-04 18:46] LABS: CRENATED RBC MARKED; ELLIPT/OVALOCYTES SLIGHT; SCHISTOCYTES SLIGHT; TOXIC GRANULATION/VACUOLAZATIO 1+
[2022-12-04 18:47] LABS: AMPHETAMINE SCREEN, URINE NEGATIVE (NEGATIVE); BENZODIAZEPINES SCREEN URINE NEGATIVE (NEGATIVE); CANNABINOID SCREEN, URINE NEGATIVE (NEGATIVE); COCAINE SCREEN URINE NEGATIVE (NEGATIVE)
[2022-12-04 18:48] LABS: BARBITURATE SCREEN URINE NEGATIVE (NEGATIVE); METHADONE STAT NEGATIVE (NEGATIVE); OPIATE SCREEN URINE NEGATIVE (NEGATIVE); OXYCODONE STAT NEGATIVE (NEGATIVE); PROPOXYPHENE STAT NEGATIVE (NEGATIVE); TRICYCLIC ANTIDEPRESSANTS SCRE NEGATIVE (NEGATIVE)
[2022-12-04 18:49] LABS: SODIUM 133 MMOL/L (135-145)
[2022-12-04 18:50] LABS: ALANINE AMINOTRANSFERASE 21 U/L (0-55); ALKALINE PHOSPHATASE 61 U/L (40-136); BILIRUBIN,TOTAL 0.5 MG/DL (0.1-1.0); BUN/CREATININE RATIO 21; CALCIUM 7.9 MG/DL (8.5-10.1); CARBON DIOXIDE 27 MMOL/L (21-32); CHLORIDE 96 MMOL/L (98-107); CREATININE SERUM 1.16 MG/DL (0.60-1.30); GFR ESTIMATED 72; GLUCOSE 117 MG/DL (70-105); MAGNESIUM 1.4 MG/DL (1.6-2.4); TOTAL PROTEIN 4.9 GM/DL (6.4-8.2)
[2022-12-04 18:51] LABS: ALBUMIN 2.5 GM/DL (3.2-4.5); LIPASE 75 U/L (8-78)
[2022-12-04] MEDS ORDERED: FUROSEMIDE 40 MG/4 ML INJ (LASIX) IVP STA (19:30)
[2022-12-04] MEDS ORDERED: MAGNESIUM 1 GM/100 ML IVPB 100 ML IV STA (19:30)
[2022-12-04] MEDS ORDERED: KCL 20 MEQ TAB (K-DUR) PO STA (19:31)
[2022-12-04] MEDS ORDERED: MAGN120C2 PO (20:08)
[2022-12-04 20:50] VITALS: BP 94/48
== END 2022-12-04 20:50 | disposition home or self-care (01) ==
LOC: EDUNIT# 16:57 → ER FS 16:58
DX: I11.0 Hypertensive heart disease with heart failure (principal); I50.9 Heart failure, unspecified; R51.9 Headache, unspecified; E87.6 Hypokalemia; E83.42 Hypomagnesemia; R41.840 Attention and concentration deficit; Z79.899 Other long term (current) drug therapy
CPT/HCPCS: 36415; 70450; 71045; 80053; 80306; 81000; 83690; 83735; 83880; 84484; 85007; 85027; 93005; 93041; 99284; G0480; 80320

== ENCOUNTER 2022-12-15 23:29 | Emergency (ER) | payer OTHER ==
[~2022-12-15 23:29] MED LIST changes: +MAGN120C2 PO
[2022-12-15 23:34] VITALS: BP 124/66
--- NOTE | 2022-12-16 00:01 | ED Fall/Injury ---
General Chief Complaint: Trauma-Non Activation Stated Complaint: FREQUENT FALL|WEAKNESS Source: patient, EMS, old records Exam Limitations: no limitations History of Present Illness Date Seen by Provider: Dec 15, 2022 Time Seen by Provider: 23:30 Initial Comments 62-year-old male with past medical history of CVA with residual left-sided weakness, CHF, heart valve replacement on warfarin coming in via EMS after mechanical fall. The patient has difficulty walking due to his residual weakness, often his left leg gets tripped up and he generally just feels weak, and he fell to the ground. He states he did hit his head earlier, but did not pass out. He remembers all events, denies headache. Was not really complaining of pain much of anywhere other than some mild left-sided rib pain. Otherwise denying any other acute complaints. Allergies and Home Medications Allergies Coded Allergies: No Known Drug Allergies (Unverified , 06/08/20) Patient Home Medication List Home Medication List Reviewed: Yes Aspirin (Aspirin) 81 Mg Tab.chew, 81 MG PO DAILY, (Reported) Entered as Reported by: YARA PABLO on 06/08/20 1305 Cholecalciferol (Vitamin D3) (Vitamin D3) 125 Mcg Tablet, 125 MCG PO DAILY, (Reported) Entered as Reported by: YARA PABLO on 06/08/20 1305 Digoxin (Digoxin) 250 Mcg Tablet, 250 MCG PO HS, (Reported) Entered as Reported by: ELAINE DUNCAN on 03/22/15 0848 Docusate Sodium (Stool Softener) 100 Mg Tablet, 100 MG PO DAILY, (Reported) Entered as Reported by: YARA PABLO on 06/08/20 1306 Ferrous Sulfate (Iron) 325 Mg Tablet, 325 MG PO DAILY, (Reported) Entered as Reported by: YARA PABLO on 06/08/20 1305 Furosemide (Furosemide) 20 Mg Tablet, 20 MG PO DAILY, (Reported) Entered as Reported by: YARA PABLO on 06/08/20 1305 Hydrocodone/Acetaminophen (Hydrocodone-Acetamin 5-325 mg) 5 Mg-325 Mg Tablet, 1 EACH PO Q4H PRN for PAIN-MODERATE (5-7) Prescribed by: ROBI OLEARY on 03/29/22 1304 Hydrocodone/Acetaminophen (Hydrocodone-Acetamin 5-325 mg) 5 Mg-325 Mg Tablet, 1 TAB PO Q8H PRN for PAIN-MODERATE (5-7) Prescribed by: PERI ZUNIGA on 12/16/22 0009 Magnesium Glycinate, Mag Oxide (Magnesium Glycinate) 120 Mg Magnesium Capsule, 120 MG PO DAILY Prescribed by: KIESHA RICHARD on 12/04/222007 Metolazone (Metolazone) 5 Mg Tablet, 5 MG PO BID, (Reported) Entered as Reported by: YARA PABLO on 06/08/20 130 Metoprolol Succinate (Metoprolol Succinate) 25 Mg Tab.er.24h, 25 MG PO DAILY, (Reported) Entered as Reported by: JERI SOLER on 03/29/22 114 Spironolactone (Spironolactone) 25 Mg Tablet, 25 MG PO BID, (Reported) Entered as Reported by: YARA PABLO on 06/08/20 1305 Warfarin Sodium (Warfarin Sodium) 6 Mg Tablet, 6 MG PO DAILY, (Reported) Entered as Reported by: YARA PABLO on 06/08/20 1305 Review of Systems Review of Systems Constitutional: No fever Eyes: No Symptoms Reported Ears, Nose, Mouth, Throat: no symptoms reported Respiratory: no symptoms reported Cardiovascular: no symptoms reported Gastrointestinal: no symptoms reported Genitourinary: no symptoms reported Musculoskeletal: see HPI Skin: no symptoms reported Psychiatric/Neurological: See HPI Past [id number]-[id number] Hx Patient Social History Substance use?: No Immunizations Up To Date First/Initial COVID19 Vaccinat: 2020 Second COVID19 Vaccination Tyrone: 2020 Third COVID19 Vaccination Date: 2020 Seasonal Allergies Seasonal Allergies: No Past Medical History Surgery/Hospitalization HX: Stroke 2020, CHF, Atrial fibrillation, Hypertension Surgeries: Yes Valve Replacement Respiratory: No Currently Using CPAP: No Currently Using BIPAP: No Cardiac: Yes Atrial Fibrillation, Chronic Edema/Swelling, Deep Vein Thrombosis, Hypertension Neurological: Yes Stroke Sexually Transmitted Disease: No HIV/AIDS: No Genitourinary: No Gastrointestinal: Yes Chronic Constipation Musculoskeletal: No Endocrine: No HEENT: No Loss of Vision: Denies Hearing Impairment: Hard of Hearing Cancer: No Psychosocial: No Integumentary: No Blood Disorders: Yes (ANEMIA) Adverse Reaction/Blood Tranf: No (N/A) Physical Exam Vital Signs Vital Signs - First Documented 12/15/22 23:34 Temp 36.6 Pulse 66 Resp 18 B/P (MAP) 124/66 (85) Capillary Refill : Height, Weight, BMI Height: 5'10.00" Weight: 180lbs. oz. 81.654473gm; 25.05 BMI Method: General Appearance: no apparent distress, thin, other (Chronically ill- appearing) HEENT: PERRL/EOMI, normal ENT inspection, pharynx normal Neck: non-tender, full range of motion, supple, normal inspection Cardiovascular: other (Lower extremity edema) Respiratory: chest non-tender, lungs clear, normal breath sounds, no respiratory distress, no accessory muscle use Gastrointestinal: normal bowel sounds, non tender, soft; No distended, No guarding, No rebound Back: normal inspection, no CVA tenderness, no vertebral tenderness Extremities: normal range of motion, non-tender, normal inspection, no calf tenderness, normal capillary refill, pedal edema Neurologic/Psychiatric: alert, normal mood/affect, other (Oriented to person and location, disoriented to date) Skin: normal color, warm/dry Malorie Coma Score Best Eye Response: (4) Open Spontaneously Best Verbal Response: (4) Confused Conversation Best Motor Response: (6) Obeys Commands Progress/Results/Core Measures Results/Orders Lab Results Laboratory Tests Test 12/15/22 23:40 12/15/22 23:45 Range/Units White Blood Count 8.7 4.3-11.0 10^3/uL Red Blood Count 5.65 H 4.30-5.52 10^6/uL Hemoglobin 16.3 13.3-17.7 g/dL Hematocrit 49 40-54 % Mean Corpuscular Volume 87 80-99 fL Mean Corpuscular Hemoglobin 29 25-34 pg Mean Corpuscular Hemoglobin Concent 33 32-36 g/dL Red Cell Distribution Width 14.7 H 10.0-14.5 % Platelet Count 266 130-400 10^3/uL Mean Platelet Volume 9.8 9.0-12.2 fL Immature Granulocyte % (Auto) 1 % Neutrophils (%) (Auto) 88 H 42-75 % Lymphocytes (%) (Auto) 4 L 12-44 % Monocytes (%) (Auto) 7 0-12 % Eosinophils (%) (Auto) 0 0-10 % Basophils (%) (Auto) 0 0-10 % Neutrophils # (Auto) 7.7 1.8-7.8 10^3/uL Lymphocytes # (Auto) 0.3 L 1.0-4.0 10^3/uL Monocytes # (Auto) 0.6 0.0-1.0 10^3/uL Eosinophils # (Auto) 0.0 0.0-0.3 10^3/uL Basophils # (Auto) 0.0 0.0-0.1 10^3/uL Immature Granulocyte # (Auto) 0.1 0.0-0.1 10^3/uL Neutrophils % (Manual) 88 % Lymphocytes % (Manual) 4 % Monocytes % (Manual) 8 % Prothrombin Time 15.1 H 12.2-14.7 SEC INR Comment 1.1 0.8-1.4 Activated Partial Thromboplast Time 29 24-35 SEC Sodium Level 138 135-145 MMOL/L Potassium Level 3.6 3.6-5.0 MMOL/L Chloride Level 98 98-107 MMOL/L Carbon Dioxide Level 26 21-32 MMOL/L Anion Gap 14 5-14 MMOL/L Blood Urea Nitrogen 22 H 7-18 MG/DL Creatinine 1.04 0.60-1.30 MG/DL Estimat Glomerular Filtration Rate 82 BUN/Creatinine Ratio 21 Glucose Level 114 H 70-105 MG/DL Calcium Level 9.0 8.5-10.1 MG/DL Corrected Calcium 9.6 8.5-10.1 MG/DL Magnesium Level 1.6 1.6-2.4 MG/DL Total Bilirubin 1.0 0.1-1.0 MG/DL Aspartate Amino Transf (AST/SGOT) 42 H 5-34 U/L Alanine Aminotransferase (ALT/SGPT) 28 0-55 U/L Alkaline Phosphatase 73 40-136 U/L Total Protein 6.1 L 6.4-8.2 GM/DL Albumin 3.3 3.2-4.5 GM/DL Urine Color YELLOW Urine Clarity CLEAR Urine pH 7.5 5-9 Urine Specific Flushing 1.010 L 1.016-1.022 Urine Protein NEGATIVE NEGATIVE Urine Glucose (UA) NEGATIVE NEGATIVE Urine Ketones NEGATIVE NEGATIVE Urine Nitrite NEGATIVE NEGATIVE Urine Bilirubin NEGATIVE NEGATIVE Urine Urobilinogen 0.2 < = 1.0 MG/DL Urine Leukocyte Esterase NEGATIVE NEGATIVE Urine RBC (Auto) NEGATIVE NEGATIVE Urine RBC NONE /HPF Urine WBC NONE /HPF Urine Squamous Epithelial Cells 2-5 /HPF Urine Crystals NONE /LPF Urine Bacteria NEGATIVE /HPF Urine Casts NONE /LPF Urine Mucus NEGATIVE /LPF Urine Culture Indicated NO My Orders Orders - PERI ZUNIGA MD Ct Head/Cervical Spine Wo (12/15/22 23:34) Cbc With Automated Diff (12/15/22 23:34) Comprehensive Metabolic Panel (12/15/22:34) Magnesium (12/15/22 23:34) Protime With Inr (12/15/22:34) Partial Thromboplastin Time (12/15/22:34) Chest 1 View Ap/Pa Only (12/15/22:34) Ua Culture If Indicated (12/15/22 23:40) Manual Differential (12/15/22 23:40) Hydrocodone/Apap 5/325 Tablet (Lortab 5 (12/16/22 00:15) Medications Given in ED Current Medications Medications Dose Ordered Sig/Mabel Route Start Time Stop Time Status Last Admin Dose Admin Acetaminophen/ Hydrocodone Bitart 1 ea ONCE ONCE PO 12/16/22 00:15 12/16/22 00:16 DC 12/16/22 00:26 1 EA Vital Signs/I&O 12/15/22 23:34 Temp 36.6 Pulse 66 Resp 18 B/P (MAP) 124/66 (85) Progress Progress Note : Progress Note 62-year-old male with above history coming in after mechanical fall. ABCs were intact and vitals were stable on presentation. Physical exam with no significant tenderness anywhere on palpation and no external signs of trauma. CT head and cervical spine ordered due to the fall and he is on warfarin. On my interpretation of the CT head I do not see any obvious brain bleed or mass, and it appears similar to the most recent CT head less than a month ago. Chest x- ray also done and I do not see any obvious pneumothorax, but I do see a left rib just lateral and with a mildly displaced fracture. Patient having a minimal amount of pain. He was given hydrocodone for this. An IV was placed and basic labs were obtained and were significant for normal hemoglobin, normal white blood cell count, normal creatinine, normal potassium, normal magnesium, INR 1.1 which is subtherapeutic, but good considering he had a trauma from a fall tonight. His urinalysis was negative for infection. In regards to his INR, his caregiver states he was not taking his warfarin for a while, now she has taken over his medications, and he is taking it again. Stat rad read was negative for acute findings in the CT head and cervical spine. I believe he is stable for discharge with outpatient follow-up. Of note, I did discuss with the patient likely needing a long term due to his level of debility. He states he is not ready for that decision as of yet. Given he has no other reason for admission other than for potential placement, and since he does not want placement, he will be discharged back home. He does live with other family members that help take care of him. Departure Impression Primary Impression: Fall Qualified Codes: W19.XXXA - Unspecified fall, initial encounter Additional Impressions: History of stroke Left-sided weakness Rib fracture Qualified Codes: S22.32XA - Fracture of one rib, left side, initial encounter for closed fracture Disposition: 01 HOME, SELF-CARE Condition: Stable Departure-Patient Inst. Decision time for Depature: 01:00 Referrals: KASH MORALEZ MD (PCP/Family) Primary Care Physician Patient Instructions: Preventing Falls ED Add. Discharge Instructions: It does appear like you have at least 1 broken rib on the left side where you are hurting. Hydrocodone was sent to your pharmacy to take when you are in severe pain. Please follow-up with your regular doctor regarding this if you have continued pain after the next 1 to 2 weeks. Please have someone go to the house to remove anything that you could potentially trip on such as rugs. Please discuss with your regular doctor getting more help, may be moving to an assisted living facility since you are at such high risk for falling. Your INR was only 1.1 which means your warfarin is not currently therapeutic. Please be sure to be taking your warfarin as prescribed. Scripts Hydrocodone/Acetaminophen (Hydrocodone-Acetamin 5-325 mg) 5 Mg-325 Mg Tablet 1 TAB PO Q8H PRN for PAIN-MODERATE (5-7) for 3 Days, #9 TAB Prov: PERI ZUNIGA MD 12/16/22 PERI ZUNIGA MD Dec 16, 2022 00:01
[2022-12-16 00:03] LABS: BASOPHILS % (AUTO) 0 % (0-10); EOSINOPHILS % (AUTO) 0 % (0-10); HEMATOCRIT 49 % (40-54); HEMOGLOBIN 16.3 g/dL (13.3-17.7); LYMPHOCYTES # (AUTO) 0.3 10^3/uL (1.0-4.0); LYMPHOCYTES % (AUTO) 4 % (12-44); MEAN CORPUSCULAR HEMOGLOBIN 29 pg (25-34); MEAN CORPUSCULAR HGB CONC 33 g/dL (32-36); MEAN CORPUSCULAR VOLUME 87 fL (80-99); MEAN PLATELET VOLUME 9.8 fL (9.0-12.2); MONOCYTES # (AUTO) 0.6 10^3/uL (0.0-1.0); MONOCYTES % (AUTO) 7 % (0-12); NEUTROPHILS # (AUTO) 7.7 10^3/uL (1.8-7.8); NEUTROPHILS % (AUTO) 88 % (42-75); PLATELET COUNT 266 10^3/uL (130-400); WHITE BLOOD COUNT 8.7 10^3/uL (4.3-11.0)
[2022-12-16 00:04] LABS: BILIRUBIN,URINE NEGATIVE (NEGATIVE); CLARITY,URINE CLEAR; COLOR,URINE YELLOW; GLUCOSE, URINE (UA) NEGATIVE (NEGATIVE); KETONES,URINE NEGATIVE (NEGATIVE); LEUKOCYTE ESTERASE ,URINE NEGATIVE (NEGATIVE); NITRITE,URINE NEGATIVE (NEGATIVE); PH,URINE 7.5 (5-9); PROTEIN,URINE NEGATIVE (NEGATIVE)
[2022-12-16 00:07] LABS: BACTERIA,URINE NEGATIVE /HPF
[2022-12-16] MEDS ORDERED: ACHD5005 PO (00:09)
[2022-12-16 00:15] LABS: INR 1.1 (0.8-1.4); PROTHROMBIN TIME PATIENT 15.1 SEC (12.2-14.7)
[2022-12-16] MEDS ORDERED: HYDROcodone/APAP 5 MG/325 MG (LORTAB) TAB PO ONE (00:15)
[2022-12-16 00:26] LABS: ALBUMIN 3.3 GM/DL (3.2-4.5); CREATININE SERUM 1.04 MG/DL (0.60-1.30); LYMPHOCYTES % (MANUAL) 4 %; MAGNESIUM 1.6 MG/DL (1.6-2.4); MONOCYTES % (MANUAL) 8 %; NEUTROPHILS % (MANUAL) 88 %; POTASSIUM 3.6 MMOL/L (3.6-5.0); TOTAL PROTEIN 6.1 GM/DL (6.4-8.2)
--- NOTE | 2022-12-16 07:10 | Diagnostic Imaging Report ---
PROCEDURE: CT head and CT cervical spine without contrast. TECHNIQUE: Multiple contiguous axial images were obtained through the brain and cervical spine without the use of intravenous contrast. Sagittal and coronal reformations through the cervical spine were then performed. Auto Exposure Controls were utilized during the CT exam to meet ALARA standards for radiation dose reduction. INDICATION: Multiple falls. CORRELATION is made with head CT from 12/04/2022. CT HEAD: The ventricles and sulci appear stable. No sulcal effacement or midline shift is identified. No acute intra-axial or extra-axial hemorrhage is detected. Old infarct on the right appears stable. Mild periventricular low attenuation is noted consistent with chronic microvascular ischemia. Cisterns are patent. The visualized paranasal sinuses are clear. IMPRESSION: Stable chronic changes. No acute intracranial process is detected. CT CERVICAL SPINE: Curvature of the cervical spine is normal. There is minimal retrolisthesis of C3 on C4 and C4 on C5. Multilevel degenerative disc disease is noted with variable disc space narrowing and marginal spurring. No fractures are identified. Prevertebral tissues are within normal limits. The odontoid is intact. IMPRESSION: Cervical spondylosis. No acute bony abnormality is detected. Dictated by: Dictated on workstation # [id number]
--- NOTE | 2022-12-16 07:40 | Diagnostic Imaging Report ---
EXAMINATION: Chest 1 view HISTORY: Fall. Chest pain. COMPARISON: 12/04/2022. FINDINGS: Stable cardiomegaly. Prosthetic heart valve is seen overlying the cardiac silhouette. Sternotomy wires are seen. The central pulmonary vasculature is mildly prominent. Opacities are seen in the right lower lobe. No large pleural effusion or pneumothorax. IMPRESSION: 1. Cardiomegaly with mild central pulmonary vascular congestion. 2. Opacities in the right lower lobe which may represent atelectasis or infection. Dictated by: Dictated on workstation # [id number]
== END 2022-12-16 01:15 | disposition home or self-care (01) ==
LOC: EDUNIT# 23:29 → ER FS 23:31
DX: S22.32XA Fracture of one rib, left side, initial encounter for closed fracture (principal); I69.354 Hemiplegia and hemiparesis following cerebral infarction affecting left non-dominant side; Z79.01 Long term (current) use of anticoagulants; W01.10XA Fall on same level from slipping, tripping and stumbling with subsequent striking against unspecified object, initial encounter
CPT/HCPCS: 36415; 70450; 71045; 72125; 80053; 81000; 83735; 85007; 85027; 85610; 85730